=== PATIENT | female | born 1960 | race Caucasian/White ===

== ENCOUNTER → 2016-12-29 10:11 | Outpatient (CLI) | payer MEDICAID ==
[2014-02-10 13:18] VITALS: BMI 26.7
[~2016-12-29 10:11] MED LIST: TAGAMET HB200 MG PO
== END | disposition home or self-care (01) ==
LOC: D.NM 10:11
DX: E21.3 Hyperparathyroidism, unspecified (principal)

== ENCOUNTER → 2017-07-03 19:00 | Outpatient (CLI) | payer MEDICAID ==
[2014-02-10 13:18] VITALS: BMI 26.7
== END | disposition home or self-care (01) ==
LOC: D.MAMMO 16:15
DX: Z12.31 Encounter for screening mammogram for malignant neoplasm of breast (principal)

== ENCOUNTER 2017-09-10 22:22 | Emergency (ER) | payer MEDICAID ==
[2014-02-10 13:18] VITALS: BMI 26.7
== END 2017-09-10 23:05 | disposition home or self-care (01) ==
LOC: D.ER 22:22
DX: F32.9 Major depressive disorder, single episode, unspecified (principal); F43.20 Adjustment disorder, unspecified; F17.200 Nicotine dependence, unspecified, uncomplicated

== ENCOUNTER → 2018-08-16 16:13 | Outpatient (CLI) | payer MEDICAID ==
[2014-02-10 13:18] VITALS: BMI 26.7
== END | disposition home or self-care (01) ==
LOC: D.MAMMO 09:45
DX: Z12.31 Encounter for screening mammogram for malignant neoplasm of breast (principal)

== ENCOUNTER 2018-10-18 12:53 | Emergency (ER) | payer MEDICAID ==
[~2018-10-18] VITALS: Ht 170.2 cm; Wt 70.5 kg
[2018-10-18 13:20] VITALS: Ht 170.2 cm; Wt 70.5 kg
== END 2018-10-18 13:35 | disposition left against medical advice (07) ==
LOC: D.ER 12:53
DX: R45.851 Suicidal ideations (principal)